=== PATIENT | male | born 1985 | race Caucasian/White ===

== ENCOUNTER 2017-11-21 16:05 | Emergency (ER) | payer OTHER ==
[2017-11-21] MEDS ORDERED: OXYCODONE-ACETAMINOPHEN 5-325 MG TABLET PO ONE (16:19)
--- NOTE | 2017-11-21 16:30 | ER Document Report ---
ED Hand/Wrist Injury - General Chief Complaint: Wrist Injury Stated Complaint: WRIST PAIN Time Seen by Provider: 11/21/17 16:19 Notes: The patient is a 32-year-old male who presents with a left wrist deformity after he was walking the dog and it pulled on the leash. He landed on his outstretched hands and is having mild tingling in his first 3 fingers. Patient is right-handed and works on computers at a help desk. He denies open wounds, elbow pain, difficulty moving his fingers or any other injuries. TRAVEL OUTSIDE OF THE [place] IN LAST 30 DAYS: No - Related Data Allergies/Adverse Reactions: Sulfa (Sulfonamide Antibiotics) Allergy (Verified 11/21/17 16:34) Past Medical History - General Information source: Patient - Social History Smoking Status: Unknown if Ever Smoked Family History: Reviewed & Not Pertinent Review of Systems - Review of Systems Notes: REVIEW OF SYSTEMS: CONSTITUTIONAL: -fevers, -chills EENT: -eye pain, -difficulty swallowing, -nasal congestion CARDIOVASCULAR: -chest pain, -syncope. RESPIRATORY: -cough, -SOB GASTROINTESTINAL: -abdominal pain, -nausea, -vomiting, -diarrhea GENITOURINARY: -dysuria, -hematuria MUSCULOSKELETAL: +left wrist deformity and pain, -back pain, -neck pain SKIN: -rash or skin lesions. HEMATOLOGIC: -easy bruising or bleeding. LYMPHATIC: -swollen, enlarged glands. NEUROLOGICAL: -altered mental status or loss of consciousness, -headache, - neurologic symptoms PSYCHIATRIC: -anxiety, -depression. ALL OTHER SYSTEMS REVIEWED AND NEGATIVE. Physical Exam - Vital signs Vitals: Temp Pulse Resp BP Pulse Ox 98.9 F 106 H 20 151/90 H 98 11/21/17 16:12 11/21/17 16:12 11/21/17 16:12 11/21/17 16:12 11/21/17 16:12 - Notes Notes: PHYSICAL EXAMINATION: GENERAL: In moderate pain. HEAD: Atraumatic, normocephalic. EYES: Pupils equal round and reactive to light, extraocular movements intact, sclera anicteric, conjunctiva are normal. ENT: nares patent, oropharynx clear without exudates. Moist mucous membranes. NECK: Normal range of motion, supple without lymphadenopathy LUNGS: Breath sounds clear to auscultation bilaterally and equal. No wheezes rales or rhonchi. HEART: Regular rate and rhythm without murmurs ABDOMEN: Soft, nontender, normoactive bowel sounds. No guarding, no rebound. No masses appreciated. EXTREMITIES: Visible deformity of left wrist with swelling of distal radius. Strong radial and ulnar pulses. Brisk capillary refill. Mild sensation loss of left 1st-3rd fingers. Able to wiggle all fingers. NEUROLOGICAL: Cranial nerves grossly intact. Normal speech, normal gait. PSYCH: Normal mood, normal affect. SKIN: Warm, Dry, normal turgor, no rashes or lesions noted. Course - Re-evaluation Re-evalutation: Patient with a left distal radius and ulnar styloid fracture. He has mild neuropraxia of the median nerve, but brisk capillary refill and strong pulses. The fracture was reduced and placed in a sugar tong splint. He was told that he must follow-up with a hand surgeon this week for further management. Told to take anti-inflammatories and Percocet for severe pain. Provided him instructions about the dangers of Percocet and he understands. - Vital Signs Vital signs: Temp Pulse Resp BP Pulse Ox 98.9 F 106 H 13 109/98 H 100 11/21/17 16:12 11/21/17 16:12 11/21/17 18:50 11/21/17 18:50 11/21/17 18:50 - Diagnostic Test Radiology reviewed: Image reviewed, Reports reviewed Radiology results interpreted by me: Left wrist x-ray at 16:07: Moderately displaced comminuted fracture of the distal radius with intra-articular extension. Left wrist x-ray at 18:04: Status post close reduction of a distal radial fracture with note made of a previously occult ulnar styloid fracture. Procedures - Conscious Sedation Conscious sedation Time started: 17:00 - See RN notes for exact times Time completed: 17:20 Consent obtained: Yes Indication: left wrist fracture Last meal: 08:00 Normal healthy pt.: P1. - ASA Classification Airway Evaluation: Normal anatomy Mallampati Classification: Class 1 Used during procedure: Suction available, IV access obtained, Pulse ox on pt., quality assurance monitor body on pt. Medications administered: Diprivan Reversal agents: None I personally performed/intraservice time: Sedation, Procedure, 30 min or less Complications: No - Immobilization Left Wrist Time completed: 17:30 Pre-Proc Neuro Vasc Exam: Other - Mild tingling in 1st-3rd fingers Immobilizer type: Sugar tong Performed by: Provider, PCT Post-Proc Neuro Vasc Exam: Unchanged from pre-exam Alignment checked and good: Yes - Joint Reduction/Fracture Care Left Wrist Time completed: 17:30 Consent obtained: Yes Conscious sedation: Yes Pre-procedure NV exam: Yes Fracture: Closed Post-procedure NV exam: Yes Post-reduction x-ray: Joint reduced Reduction attempts: 2 Complications: No Discharge - Discharge Clinical Impression: Closed left radial fracture Qualifiers: Encounter type: initial encounter Radius location: distal Fracture morphology: other intra-articular Qualified Code(s): S52.572A - Other intraarticular fracture of lower end of left radius, initial encounter for closed fracture Condition: Stable Disposition: HOME, SELF-CARE Additional Instructions: Fractured Radius The bone called the radius is fractured. This type of fracture is typically caused by falling onto the outstretched hand. You must follow-up with the hand surgeon on Thursday. A cast or splint is used to protect the fracture. For the first few days after the injury, the arm should be elevated and ice packed. Healing takes from three to eight weeks, depending on the age of the patient and the seriousness of the fracture. Your doctor has explained the treatment plan. It's important that you follow up as instructed to prevent complications. Call the doctor or return at once if severe pain or swelling occur, or if the hand becomes numb, swollen, or discolored. Prescriptions: Oxycodone HCl/Acetaminophen [Percocet 5-325 mg Tablet] 1 - 2 tab PO Q4H PRN #15 tablet PRN Reason: Forms: Elevated Blood Pressure Referrals: BEA GANDARA DO [ACTIVE STAFF] - Follow up as needed
[2017-11-21] MEDS ORDERED: PROPOFOL INJ 200 MG/20 ML VIAL IV ONE (16:53)
[2017-11-21] MEDS ORDERED: NORMAL SALINE 1000 ML 1,000 ML IV ONE (16:54)
--- NOTE | 2017-11-21 17:05 | RADIOLOGY REPORT (SQ) ---
EXAM DESCRIPTION: WRIST LEFT 3 VIEWS COMPLETED DATE/TIME: 11/21/2017 4:37 pm REASON FOR STUDY: left wrist injury, fall, deformity COMPARISON: None. NUMBER OF VIEWS: Three views. TECHNIQUE: AP, lateral, and oblique radiographic images acquired of the left wrist. LIMITATIONS: None. FINDINGS: MINERALIZATION: Normal. BONES: Moderately displaced comminuted fracture of the distal radius noting intra-articular extension . SOFT TISSUES: Soft tissue swelling surrounds the injury site. OTHER: No other significant finding. IMPRESSION: Moderately displaced comminuted fracture of the distal radius with intra-articular exten tapan. TECHNICAL DOCUMENTATION: JOB ID: [id number] [employer]- All Rights Reserved
--- NOTE | 2017-11-21 17:07 | RADIOLOGY REPORT (SQ) ---
EXAM DESCRIPTION: HAND LEFT 3 VIEWS COMPLETED DATE/TIME: 11/21/2017 4:38 pm REASON FOR STUDY: fall, wrist deformity COMPARISON: Wrist radiographs 11/21/2017 EXAM PARAMETERS: NUMBER OF VIEWS: Three views. TECHNIQUE: AP, lateral and oblique radiographic images acquired of the left hand. LIMITATIONS: Nonstandard positioning due to pain. FINDINGS: MINERALIZATION: Normal. BONES: Re- demonstration of a comminuted fracture of the distal radius. Osseous mineralization and a lignment otherwise appear normal. JOINTS: No effusions. SOFT TISSUES: Soft tissue swelling about the wrist. OTHER: No other significant finding. IMPRESSION: Comminuted fracture of the distal radius noting intra-articular extension as detailed on comparison wrist radiographs. Limited evaluation of the hand due to nonstandard positioning ; [facility], no additional osseous injuries are visualized. TECHNICAL DOCUMENTATION: JOB ID: [id number] [employer]- All Rights Reserved
[2017-11-21] MEDS ORDERED: PROPOFOL 100 ML IV ONE (17:44)
[2017-11-21] MEDS ORDERED: PROPOFOL 100 ML IV PRN (17:56)
--- NOTE | 2017-11-21 18:24 | RADIOLOGY REPORT (SQ) ---
EXAM DESCRIPTION: WRIST LEFT 2 VIEWS COMPLETED DATE/TIME: 11/21/2017 6:04 pm REASON FOR STUDY: post-reduction COMPARISON: Wrist radiographs performed this same date. NUMBER OF VIEWS: Four views. TECHNIQUE: AP, lateral, and oblique radiographic images acquired of the left wrist. LIMITATIONS: None. FINDINGS: MINERALIZATION: Normal. BONES: The patient is status post close reduction of a previously described moderately displaced comm inuted fracture of the distal radius, noting improved alignment on the images provided. Additionally , a previously occult ulnar styloid fracture is demonstrated. SOFT TISSUES: Soft tissue swelling surrounds the injury site. OTHER: No other significant finding. IMPRESSION: Status post close reduction of a distal radial fracture with note made of a previously o ccult ulnar styloid fracture. TECHNICAL DOCUMENTATION: JOB ID: [id number] [employer]- All Rights Reserved
[2017-11-21] MEDS ORDERED: NAPROXEN 250 MG TABLET PO ONE (18:39)
[2017-11-21 18:59] VITALS: BP 109/98
== END 2017-11-21 18:58 | disposition home or self-care (01) ==
LOC: ER 16:05
DX: S52.572A Other intraarticular fracture of lower end of left radius, initial encounter for closed fracture (principal); S54.12XA Injury of median nerve at forearm level, left arm, initial encounter; W00.0XXA Fall on same level due to ice and snow, initial encounter; Y93.K1 Activity, walking an animal; Z88.2 Allergy status to sulfonamides
CPT/HCPCS: 99284; 96360; 99152; 73130; 73100; 73110; 25605; J2704 ×2; J7030

== ENCOUNTER 2017-11-26 11:48 | Day surgery (SDC) | payer OTHER ==
[2017-11-25 10:44] LABS: ABSOLUTE EOSINOPHILS # (AUTO) 0.2 10^3/uL (0.0-0.6); ABSOLUTE LYMPHOCYTES (AUTO) 1.7 10^3/uL (0.5-4.7); ABSOLUTE MONOCYTES (AUTO) 0.6 10^3/uL (0.1-1.4); ABSOLUTE NEUT (AUTO) 5.7 10^3/uL (1.7-8.2); BASOPHILS % (AUTO) 0.5 % (0-2); EOSINOPHILS % (AUTO) 2.2 % (0-6); HEMATOCRIT 40.8 % (37.9-51.0); LYMPHOCYTES % (AUTO) 20.8 % (13-45); MEAN CORPUSCULAR HEMOGLOBIN 29.7 pg (27.0-33.4); MEAN CORPUSCULAR HGB CONC 34.3 g/dL (32.0-36.0); MEAN CORPUSCULAR VOLUME 87 fl (80-97); MONOCYTES % (AUTO) 7.8 % (3-13); PLATELET COUNT 261 10^3/uL (150-450); RED BLOOD COUNT 4.71 10^6/uL (4.35-5.55); RED CELL DISTRIBUTION WIDTH 13.5 % (11.5-14.0); SEGMENTED NEUTROPHILS % (AUTO) 68.7 % (42-78); TOTAL CELLS COUNTED % (AUTO) 100 %; WHITE BLOOD COUNT 8.4 10^3/uL (4.0-10.5)
[2017-11-25 11:09] LABS: ANION GAP 12 (5-19); BLOOD UREA NITROGEN 22 mg/dL (7-20); CARBON DIOXIDE 27 mmol/L (22-30); CHLORIDE 102 mmol/L (98-107); GLUCOSE 72 mg/dL (75-110); POTASSIUM 4.4 mmol/L (3.6-5.0); SODIUM 140.8 mmol/L (137-145)
--- NOTE | 2017-11-25 13:35 | EKG REPORT ---
SEVERITY:- OTHERWISE NORMAL ECG - SINUS RHYTHM BORDERLINE RIGHT AXIS DEVIATION : Confirmed by: Carrillo Krueger MD 25-Nov-2017 13:35:17
[2017-11-25 19:09] LABS: AMORPHOUS SEDIMENT,URINE TRACE /HPF; APPEARANCE,URINE SLIGHTLY-CLOUDY; BILIRUBIN,URINE NEGATIVE (NEGATIVE); COLOR,URINE YELLOW; GLUCOSE, URINE NEGATIVE (NEGATIVE); KETONES,URINE 20 mg/dL (NEGATIVE); LEUKOCYTE ESTERASE,URINE NEGATIVE (NEGATIVE); NITRITE,URINE NEGATIVE (NEGATIVE); PROTEIN,URINE NEGATIVE (NEGATIVE); URINE SPECIFIC GRAVITY 1.029; UROBILINOGEN,URINE NEGATIVE mg/dL (<2.0)
[~2017-11-26 11:48] MED LIST: CEFAZOLIN 2 GM/D5W RTU 2 GM/50 ML RTUPB IV PRN
[2017-11-26] MEDS ORDERED: HYDROMORPHONE HCL INJ/PF 2 MG/ML AMPULE ONE (12:25)
[2017-11-26] MEDS ORDERED: PROPOFOL INJ 200 MG/20 ML VIAL IV ONE (12:25)
[2017-11-26] MEDS ORDERED: MIDAZOLAM 2 MG/2 ML INJ ONE (12:25)
[2017-11-26] MEDS ORDERED: OXYCODONE-ACETAMINOPHEN 5-325 MG TABLET PO PRN ×3 (12:50→13:17)
[2017-11-26] MEDS ORDERED: DIPHENHYDRAMINE HCL 50 MG/ML VIAL IV PRN (12:50)
[2017-11-26] MEDS ORDERED: MORPHINE SULFATE 10 MG/ML INJ IV PRN (12:50)
[2017-11-26] MEDS ORDERED: MEPERIDINE HCL/PF INJ 25 MG/1 ML DISP.SYRIN IV PRN (12:50)
[2017-11-26] MEDS ORDERED: FENTANYL CITRATE INJ/PF 100 MCG/2 ML AMPUL IV PRN ×2 (12:50)
[2017-11-26] MEDS ORDERED: PROMETHAZINE HCL INJ 25 MG/1 ML VIAL IV PRN ×2 (12:50)
--- NOTE | 2017-11-26 13:14 | Operative Report ---
Operative Report DATE OF SURGERY: 11/26/17 PREOPERATIVE DIAGNOSIS: Displaced left distal radius fracture POSTOPERATIVE DIAGNOSIS: Same OPERATION: Closed reduction and application of a short arm cast of the left distal radius fracture SURGEON: LUCAS WINKLER ANESTHESIA: GA TISSUE REMOVED OR ALTERED: none COMPLICATIONS: none ESTIMATED BLOOD LOSS: 0ml INTRAOPERATIVE FINDINGS: as above PROCEDURE: Patient was brought to the operating room where he was successfully induced and intubated in supine position. After doing a timeout identifying the left wrist as the correct site we used a mini C-arm to take pictures in the AP and lateral position. Patient had a distal radius fracture with displacement and angulation. There are normal reduction of the fracture in place the wrist and a cotton loaded position. Repeat AP and lateral x-rays show adequate acceptable reduction of the fracture. I then proceeded then to wrap the hand and soft roll and apply the first layer of fiberglass. I then molded the cast and kept in the same position and took AP lateral confirming no change in alignment or reduction of the fracture. Proceeded to place a second roll of fiberglass and final role and I will wait until it hardened. Then used a surgical loop to apply to remove the adhesive portion of it. Final C-arm pictures were taken confirming the reduction and application of the cast. Patient was then extubated and sent to PACU in a stable condition. The left upper extremity was placed on top of a pillow and told to elevate. Instructed to follow-up in the office in 7-10 days. Struck to the keep the cast dry clean and intact.
--- NOTE | 2017-11-26 13:17 | PDOC DISCHARGE SUMMARY ---
Discharge Summary (SDC) - Discharge Final Diagnosis: Displaced left distal radius fracture Date of Surgery: 11/26/17 Discharge Date: 11/26/17 Condition: Good Treatment or Instructions: Keep the left upper extremity elevated. Keep the cast dry clean and intact. Follow-up in 7-10 days in the office. Nonweightbearing of the left upper extremity. Prescriptions: Oxycodone HCl/Acetaminophen [Percocet 5-325 mg Tablet] 1 - 2 tab PO ASDIR PRN # 30 tablet PRN Reason: Discharge Diet: As Tolerated Respiratory Treatments at Home: Deep Breathing/Coughing Discharge Activity: No Driving, No Lifting/Push/Pulling Home Care Assistance: None Needed Report the Following to Your Physician Immediately: Shortness of Breath, Nausea , Vomiting, Increase in Pain, Fever over 101 Degrees, Unusual Bleeding, Redness , Swelling, Warmth, Increased Soreness, Drainage-Yellow, Drainage-Hall, Drainage -Green, Drainage-Foul Smelling
[2017-11-26] MEDS ORDERED: FENTANYL CITRATE INJ/PF 100 MCG/2 ML AMPUL ONE (13:19)
[2017-11-26] MEDS: FENTANYL CITRATE INJ/PF 100 MCG/2 ML AMPUL IV PRN ×2 (13:25→13:34)
[2017-11-26 15:20] VITALS: BP 132/93
--- NOTE | 2017-11-26 15:45 | RADIOLOGY REPORT (SQ) ---
EXAM DESCRIPTION: NO CHG FLUORO; WRIST LEFT 2 VIEWS COMPLETED DATE/TIME: 11/26/2017 2:47 pm REASON FOR STUDY: CLOSED REDUCTION LEFT WRIST ASSISTED WITH FLUORO IN OR S52.532A COLLES' FRACTURE OF LEFT RADIUS, INIT FOR CLOS FX COMPARISON: None. FLUOROSCOPY TIME: 21 seconds 2 images saved to PACS. TECHNIQUE: Intra-operative images acquired during surgical procedure to evaluate progress. NUMBER OF IMAGES: 2 LIMITATIONS: None FINDINGS: Close reduction distal radial and ulnar fractures in plaster. IMPRESSION: IMAGE(S) OBTAINED DURING PROCEDURE. COMMENT: Quality ID [id number]: Final reports for procedures using fluoroscopy that document radiation exp osure indices, or exposure time and number of fluorographic images (if radiation exposure indices are not available) Please consult full operative report of the attending physician for description of the procedure. TECHNICAL DOCUMENTATION: JOB ID: [id number] [employer]- All Rights Reserved
== END 2017-11-26 15:25 | disposition home or self-care (01) ==
LOC: OROUT 11:48
PROVIDERS: ATTEND Orthopaedic Surgery
PROC: 0PSJXZZ Reposition Left Radius, External Approach (ICD-10-PCS; principal; 2017-11-26 14:00)
DX: S52.532A Colles' fracture of left radius, initial encounter for closed fracture (principal); W19.XXXA Unspecified fall, initial encounter; M25.532 Pain in left wrist; Z87.891 Personal history of nicotine dependence
CPT/HCPCS: 93005; 36415; 85025; 80048; 81001; 73100; 93010; 25605; J2250; J3010; J1170; J2704; J0690; 01820